=== PATIENT | female | born 1985 | race Caucasian/White ===

== ENCOUNTER 2017-03-23 13:27 | Outpatient (CLI) | payer OTHER ==
--- NOTE | 2017-03-23 15:36 | RAD ---
THREE VIEWS CERVICAL SPINE: Date: 03-23-17 History: Neck pain. FINDINGS: C1 to the cervicothoracic junction are seen on the lateral view. There is straightening of the [place] cervical lordotic curvature. Vertebral body heights and intervertebral disc spaces are within norm al limits. Minimal osteophytes seen anteriorly at the C5-6 and C6-7 levels. No fracture or subluxati on is seen involving the cervical spine. Prevertebral soft tissues are within normal limits. IMPRESSION: Minimal degenerative change in the cervical spine, but no fracture or subluxation is seen. POS: [facility]
== END 2017-03-23 13:28 | disposition home or self-care (01) ==
LOC: RAD-FRANK 13:27
PROVIDERS: ATTEND Nurse Practitioner Family
DX: M54.2 Cervicalgia (principal); M47.892 Other spondylosis, cervical region
CPT/HCPCS: 72040

== ENCOUNTER 2022-01-26 14:12 | Outpatient (CLI) | payer OTHER | END 2022-01-26 14:13 | disposition home or self-care (01) | LOC: RAD-FRANK 14:12 | PROVIDERS: ATTEND Nurse Practitioner Family | DX: M79.641 Pain in right hand (principal); M54.2 Cervicalgia; M47.812 Spondylosis without myelopathy or radiculopathy, cervical region | CPT/HCPCS: 72040 ==

== ENCOUNTER 2022-03-19 13:23 | Outpatient (CLI) | payer BC | END 2022-03-19 13:24 | disposition home or self-care (01) | LOC: LABBT 13:23 | PROVIDERS: ATTEND Neurological Surgery | DX: Z01.810 Encounter for preprocedural cardiovascular examination (principal); M54.12 Radiculopathy, cervical region | CPT/HCPCS: 93005; 93010 ==

== ENCOUNTER 2022-03-24 05:44 | Day surgery (SDC) | payer BC ==
[2022-03-22 16:11] VITALS: BMI 33.5
[2022-03-24] MEDS ORDERED: Thrombin 5000 UNITS/5 ML VIAL ONE (06:09)
[2022-03-24] MEDS ORDERED: fentaNYL Citrate/PF 100 MCG/2 ML SYRINGE ONE (06:31)
[2022-03-24] MEDS ORDERED: Midazolam HCl 2 mg/2 ml Vial ONE (06:49)
[2022-03-24] MEDS ORDERED: Sodium Chloride 0.9% 100 ML ONE ×2 (06:54→10:53)
[2022-03-24] MEDS ORDERED: CEFAZOLIN 2 GM VIAL ONE ×2 (06:54→10:53)
[2022-03-24] MEDS ORDERED: Dexmedetomidine 200 MCG/2 ML VIAL ONE (06:55)
[2022-03-24] MEDS ORDERED: Glycopyrrolate 0.2 MG/ML 5 ML SYRINGE ONE (07:03)
[2022-03-24] MEDS ORDERED: Ondansetron PF 4 MG/2 ML Vial ONE (07:03)
[2022-03-24] MEDS ORDERED: Ketorolac Tromethamine 30 MG/ML VIAL ONE (07:03)
[2022-03-24] MEDS ORDERED: Rocuronium Bromide 10 MG/ML (10ML VIAL) ONE (07:03)
[2022-03-24] MEDS ORDERED: PHENYLEPHRINE-NS 100 MCG/ML 10 ML SYRINGE ONE (07:03)
[2022-03-24] MEDS ORDERED: NEOSTIGMINE 3 MG/3 ML SYR 3 MG/3 ML SYRINGE ONE (07:03)
[2022-03-24] MEDS ORDERED: PROPOFOL 200 MG/20 ML VIAL ONE (07:03)
[2022-03-24] MEDS ORDERED: Fentanyl 100 MCG/2 ML VIAL ONE ×3 (08:53→09:44)
[2022-03-24] MEDS ORDERED: HYDROcodone/Acetaminophen 5/325 mg Tablet ONE ×2 (10:36→13:11)
[2022-03-24] MEDS ORDERED: Morphine 2 MG/ML VIAL ONE (10:37)
== END 2022-03-24 14:05 | disposition home or self-care (01) ==
LOC: SDC 05:44
PROVIDERS: ATTEND Neurological Surgery
PROC: 0RG10A0 Fusion of Cervical Vertebral Joint with Interbody Fusion Device, Anterior Approach, Anterior Column, Open Approach (ICD-10-PCS; principal; 2022-03-24)
PROC: 0RG40A0 Fusion of Cervicothoracic Vertebral Joint with Interbody Fusion Device, Anterior Approach, Anterior Column, Open Approach (ICD-10-PCS; principal; 2022-03-24)
DX: M50.123 Cervical disc disorder at C6-C7 level with radiculopathy (principal); M48.03 Spinal stenosis, cervicothoracic region; I10 Essential (primary) hypertension; Z87.891 Personal history of nicotine dependence; Z79.899 Other long term (current) drug therapy
CPT/HCPCS: 76000; C1713; J0690; J1885; J2250; J2270; J2405; J2704; J3010; J3490

== ENCOUNTER 2022-08-11 06:02 | Day surgery (SDC) | payer BC ==
[2022-08-09 12:44] VITALS: BMI 33.3
[2022-08-11] MEDS ORDERED: EPINEPHrine 1 MG/ML AMP ONE (07:04)
[2022-08-11] MEDS ORDERED: Lidocaine 1% (PF) 30 ML VIAL ONE (07:04)
[2022-08-11] MEDS ORDERED: CEFAZOLIN 2 GM VIAL ONE (07:20)
[2022-08-11] MEDS ORDERED: Sodium Chloride 0.9% 100 ML ONE (07:20)
[2022-08-11] MEDS ORDERED: Midazolam HCl 2 mg/2 ml Vial ONE ×2 (07:38→08:04)
[2022-08-11] MEDS ORDERED: fentaNYL PF 100 MCG/2 ML SYRINGE ONE (08:02)
[2022-08-11] MEDS ORDERED: Ketorolac Tromethamine 30 MG/ML VIAL ONE (08:06)
[2022-08-11] MEDS ORDERED: Dexamethasone 20 MG/5 ML VIAL ONE (08:06)
[2022-08-11] MEDS ORDERED: Lidocaine 1% PF 5 ML VIAL ONE (08:06)
[2022-08-11] MEDS ORDERED: Ondansetron PF 4 MG/2 ML Vial ONE (08:06)
[2022-08-11] MEDS ORDERED: PROPOFOL 200 MG/20 ML VIAL ONE (08:06)
[2022-08-11] MEDS ORDERED: Fentanyl 100 MCG/2 ML VIAL ONE (09:08)
[2022-08-11] MEDS ORDERED: HYDROcodone/Acetaminophen 5/325 mg Tablet ONE (09:38)
== END 2022-08-11 10:35 | disposition home or self-care (01) ==
LOC: SDC 06:02
PROVIDERS: ATTEND Neurological Surgery
PROC: 01N50ZZ Release Median Nerve, Open Approach (ICD-10-PCS; principal; 2022-08-11)
DX: G56.01 Carpal tunnel syndrome, right upper limb (principal); I10 Essential (primary) hypertension; K21.9 Gastro-esophageal reflux disease without esophagitis; Z87.891 Personal history of nicotine dependence; Z79.899 Other long term (current) drug therapy; Z88.5 Allergy status to narcotic agent
CPT/HCPCS: J0171; J2001; J2250; J3010; J3490

== ENCOUNTER 2022-10-06 06:06 | Day surgery (SDC) | payer BC ==
[2022-10-04 11:42] VITALS: BMI 33.5
[2022-10-06] MEDS ORDERED: Lidocaine 1% (PF) 30 ML VIAL ONE (06:38)
[2022-10-06] MEDS ORDERED: EPINEPHrine 1 MG/ML AMP ONE (06:38)
[2022-10-06] MEDS ORDERED: Dexmedetomidine 200 MCG/2 ML VIAL ONE (07:27)
[2022-10-06] MEDS ORDERED: Magnesium 5 GM/10 ML VIAL ONE (07:27)
[2022-10-06] MEDS ORDERED: Midazolam HCl 2 mg/2 ml Vial ONE (07:54)
[2022-10-06] MEDS ORDERED: CEFAZOLIN 2 GM VIAL ONE (08:00)
[2022-10-06] MEDS ORDERED: Sodium Chloride 0.9% 100 ML ONE (08:00)
[2022-10-06] MEDS ORDERED: Lidocaine 1% PF 5 ML VIAL ONE (08:22)
[2022-10-06] MEDS ORDERED: PROPOFOL 200 MG/20 ML VIAL ONE (08:22)
[2022-10-06] MEDS ORDERED: Dexamethasone 20 MG/5 ML VIAL ONE (08:22)
[2022-10-06] MEDS ORDERED: Ondansetron PF 4 MG/2 ML Vial ONE (08:22)
[2022-10-06] MEDS ORDERED: Ketorolac Tromethamine 30 MG/ML VIAL ONE (08:22)
[2022-10-06] MEDS ORDERED: fentaNYL 50 mcg/mL 1 mL Vial ONE ×2 (09:18→09:32)
== END 2022-10-06 10:28 | disposition home or self-care (01) ==
LOC: SDC 06:06
PROVIDERS: ATTEND Neurological Surgery
PROC: 01N50ZZ Release Median Nerve, Open Approach (ICD-10-PCS; principal; 2022-10-06)
DX: G56.02 Carpal tunnel syndrome, left upper limb (principal); I10 Essential (primary) hypertension; K21.9 Gastro-esophageal reflux disease without esophagitis; Z87.891 Personal history of nicotine dependence; Z79.899 Other long term (current) drug therapy; Z88.5 Allergy status to narcotic agent; Z98.1 Arthrodesis status; Z98.890 Other specified postprocedural states
CPT/HCPCS: J0171; J1100; J1885; J2001; J2250; J2405; J2704; J3010; J3475; J3490

== ENCOUNTER 2023-01-03 15:36 | Outpatient (CLI) | payer BC | END 2023-01-03 15:37 | disposition home or self-care (01) | LOC: BICMAMMO 15:36 | PROVIDERS: ATTEND Family Medicine | DX: Z12.31 Encounter for screening mammogram for malignant neoplasm of breast (principal); Z80.3 Family history of malignant neoplasm of breast | CPT/HCPCS: 77063; 77067 ==